=== PATIENT | female | born 1960 | race Caucasian/White ===

== ENCOUNTER 2017-11-22 13:09 | Emergency (ER) | payer OTHER ==
--- OUTSIDE RECORDS SUMMARY | 2017-11-22 13:12 | XMS REPORT ---
:1960 Author Organization [facility] Address [address] [place] [address] Dr. Lanza [address] [place] [id number] Care Team Providers Name Role Phone SHEMAR GRAY Unavailable Unavailable Problems This patient has no known problems. Allergies, Adverse Reactions, Alerts This patient has no known allergies or adverse reactions. Medications This patient has no known medications. Results Test Description Test Time Test Comments Text Results Atomic Results Result Comments PHOSPHORUS 2016-10-30 04:58:00 Test Item Value Reference Range Comments PHOSPHORUS (BEAKER) (test stuk=133) 3.8 mg/dL 2.3-4.7 FastingLIPID [id number] 04:58:00 Test Item Value Reference Range Comments TRIGLYCERIDES (BEAKER) (test gdga=413) 87 mg/dL CHOLESTEROL (BEAKER) (test qbsg=219) 197 mg/dL HDL CHOLESTEROL (BEAKER) (test sift=034) 50 mg/dL LDL CHOLESTEROL CALCULATED (BEAKER) (test 130 mg/dL icsj=188) Triglyceride Reference Range: Low Risk <150 Borderline 150- 199 High Risk 200-499 Very High Risk >=500Cholesterol Reference Range: Low Risk <200 Borderline 200-239 High Risk > 240HDL Cholesterol Reference Range: Low Risk >=60 High Risk <40LDL Cholesterol Reference Range: Optimal <100 Near Optimal 100-129 Borderline 130-159 High 160-189 Very High >=190 FastingT4, [id number] 11:19:00 Test Item Value Reference Range Comments FREE T4 (BEAKER) (test eybx=831) 0.83 ng/dL 0.70-1.48 CBC W/PLT COUNT & AUTO [id number] 10:53:00 Test Item Value Reference Range Comments WHITE BLOOD CELL COUNT (BEAKER) (test qlzz=205) 8.5 K/ L 4.0-10.0 RED BLOOD CELL COUNT (BEAKER) (test pwzf=957) 3.59 M/ L 4.00-5.00 HEMOGLOBIN (BEAKER) (test mkwz=544) 13.6 GM/DL 12.0-15.0 HEMATOCRIT (BEAKER) (test vcrr=143) 36.9 % 36.0-45.0 MEAN CORPUSCULAR VOLUME (BEAKER) (test oyoh=840) 103.0 fL 82.0-99.0 MEAN CORPUSCULAR HEMOGLOBIN (BEAKER) (test 38.0 pg 27.0-33.0 bkwn=467) MEAN CORPUSCULAR HEMOGLOBIN CONC (BEAKER) (test 36.9 GM/DL 32.0-36.0 ygnn=926) RED CELL DISTRIBUTION WIDTH (BEAKER) (test 12.2 % 10.3-14.2 vhoc=637) PLATELET COUNT (BEAKER) (test gtbj=549) 263 K/CU MM 150-430 MEAN PLATELET VOLUME (BEAKER) (test gvxa=445) 8.0 fL 6.5-10.5 NUCLEATED RED BLOOD CELLS (BEAKER) (test 0 /100 WBC 0-0 fjgk=402) NEUTROPHILS RELATIVE PERCENT (BEAKER) (test 65 % nrch=385) LYMPHOCYTES RELATIVE PERCENT (BEAKER) (test 26 % zcue=945) MONOCYTES RELATIVE PERCENT (BEAKER) (test 6 % ffkn=703) EOSINOPHILS RELATIVE PERCENT (BEAKER) (test 2 % over=462) BASOPHILS RELATIVE PERCENT (BEAKER) (test 1 % pmyz=415) NEUTROPHILS ABSOLUTE COUNT (BEAKER) (test 5.49 K/ L 1.80-8.00 lakv=291) LYMPHOCYTES ABSOLUTE COUNT (BEAKER) (test 2.24 K/ L 1.48-4.50 voys=068) MONOCYTES ABSOLUTE COUNT (BEAKER) (test 0.55 K/ L 0.00-1.30 zkiq=787) EOSINOPHILS ABSOLUTE COUNT (BEAKER) (test 0.13 K/ L 0.00-0.50 wdrm=421) BASOPHILS ABSOLUTE COUNT (BEAKER) (test 0.08 K/ L 0.00-0.20 lekm=416) 0.00HEMOGLOBIN [id number] 10:52:00 Test Item Value Reference Range Comments HEMOGLOBIN A1C (BEAKER) (test vlit=897) 5.1 % 4.3-6.1 TSH/FREE T4 IF [id number] 10:44:00 Test Item Value Reference Range Comments THYROID STIMULATING HORMONE (BEAKER) (test 8.53 uIU/mL 0.35-4.94 ghss=663) VITAMIN [id number] 10:37:00 Test Item Value Reference Range Comments VITAMIN B12 (BEAKER) (test ybfz=955) 992 pg/mL 213-816 URINALYSIS W/ [id number] 10:31:00 Test Item Value Reference Range Comments COLOR (BEAKER) (test vrso=349) Yellow CLARITY (BEAKER) (test smcg=123) Clear SPECIFIC GRAVITY UA (BEAKER) (test 1.012 1.001-1.035 yela=932) PH UA (BEAKER) (test vtwe=358) 7.5 5.0-8.0 PROTEIN UA (BEAKER) (test wgxs=831) Negative Negative GLUCOSE UA (BEAKER) (test ybix=493) Negative Negative KETONES UA (BEAKER) (test aiuo=266) 20 mg/dL Negative BILIRUBIN UA (BEAKER) (test bxkk=766) Negative Negative BLOOD UA (BEAKER) (test vbjb=800) Negative Negative NITRITE UA (BEAKER) (test jpxy=763) Negative Negative LEUKOCYTE ESTERASE UA (BEAKER) (test Negative Negative nhhg=352) UROBILINOGEN UA (BEAKER) (test mjhm=721) 0.2 mg/dL 0.2-1.0 RBC UA (BEAKER) (test qkjw=526) 5 /HPF WBC UA (BEAKER) (test sfyi=388) < /HPF MUCUS (BEAKER) (test hugf=1917) Rare SQUAMOUS EPITHELIAL (BEAKER) (test < /HPF hwwk=870) SOURCE(BEAKER) (test bemj=4920) Urine, Clean Catch [id number] 10:19:00 Test Item Value Reference Range Comments MAGNESIUM (BEAKER) (test jued=365) 2.0 mg/dL 1.6-2.6 HEPATIC FUNCTION [id number] 10:19:00 Test Item Value Reference Range Comments TOTAL PROTEIN (BEAKER) (test kupt=602) 7.0 gm/dL 6.0-8.3 ALBUMIN (BEAKER) (test nhvk=7545) 4.2 g/dL 3.5-5.0 BILIRUBIN TOTAL (BEAKER) (test hdgc=889) 0.9 mg/dL 0.2-1.2 BILIRUBIN DIRECT (BEAKER) (test hooc=726) 0.3 mg/dL 0.1-0.5 ALKALINE PHOSPHATASE (BEAKER) (test qume=194) 78 U/L 40-150 AST (SGOT) (BEAKER) (test lyvk=421) 18 U/L 5-34 ALT (SGPT) (BEAKER) (test zyra=855) 18 U/L 6-55 BASIC METABOLIC [id number] 10:14:00 Test Item Value Reference Range Comments SODIUM (BEAKER) (test 139 meq/L 136-145 gfii=475) POTASSIUM (BEAKER) (test 3.5 meq/L 3.5-5.1 dyzm=017) CHLORIDE (BEAKER) (test 108 meq/L 98-107 cecn=108) CO2 (BEAKER) (test 24 meq/L 22-29 ihzh=104) BLOOD UREA NITROGEN 10 mg/dL 7-21 (BEAKER) (test ttkd=363) CREATININE (BEAKER) (test 0.66 mg/dL 0.57-1.25 qjvl=254) GLUCOSE RANDOM (BEAKER) 88 mg/dL 70-105 (test dloc=213) CALCIUM (BEAKER) (test 8.6 mg/dL 8.4-10.2 upxs=572) EGFR (BEAKER) (test 93 mL/min/1.73 sq m ESTIMATED GFR IS NOT jcsp=3753) ACCURATE CREATININE CLEARANCE IN PREDICTING GLOMERULAR FILTRATION RATE. ESTIMATED GFR IS NOT APPLICABLE FOR DIALYSIS PATIENTS.
--- OUTSIDE RECORDS SUMMARY | 2017-11-22 13:12 | XMS REPORT | Clinical Summary ---
:1960 Author Organization [facility] Address [address] [place] [address] Phone Care Team Providers Name Role Phone Unavailable Primary Care Provider Unavailable Allergies Active Allergy Reactions Severity Noted Date Comments Psyllium Hives 10/29/2016 Current Medications Prescription Sig. Disp. Refills Start Date End Date Status gabapentin Take 600 mg by Active (NEURONTIN) 600 MG mouth 3 (three) tablet times daily. losartan (COZAAR) 25 Take 25 mg by Active MG tablet mouth daily. DULoxetine (CYMBALTA) Take 20 mg by Active 20 MG capsule mouth daily. meloxicam (MOBIC) 15 Take 15 mg by Active MG tabletIndications: mouth daily. Rheumatoid Arthritis levothyroxine Take 1.5 30 tablet 0 10/30/2016 Active (SYNTHROID, tablets (75 mcg LEVOTHROID) 50 MCG total) by mouth tablet Every morning on an empty stomach. aspirin 81 MG EC Take 1 tablet 360 tablet 0 10/30/2016 10/30/2017 tablet (81 mg total) by mouth daily. atorvastatin Take 1 tablet 30 tablet 0 10/30/2016 11/29/2016 (LIPITOR) 80 MG (80 mg total) tablet by mouth nightly for 30 days. Active Problems Problem Noted Date Altered mental status, unspecified 10/29/2016 TIA (transient ischemic attack) 10/29/2016 Acute encephalopathy, 2/2 TIA 10/29/2016 Acquired hypothyroidism 10/29/2016 Neuropathic pain 10/29/2016 Family History Medical History Relation Name Comments Diabetes Mother Heart disease Mother Stroke Mother Relation Name Status Comments Mother Social History Tobacco Use Types Packs/Day Years Used Date Former Smoker Comments: stopped 2009 Alcohol Use Drinks/Week oz/Week Comments Yes very occassional Sex Assigned at Date Recorded Not on file Last Filed Vital Signs Not on file Plan of Treatment Not on file Results Not on fileafter 11/21/2016
--- NOTE | 2017-11-22 14:37 | RAD REPORT ---
EXAM DESCRIPTION: CT - Head C Spine Mpr Wo Con - 11/22/2017 2:11 pm CLINICAL HISTORY: Head and neck injury status post hitting head and neck and scanner top. Head and n bhavesh pain COMPARISON: April 2017 TECHNIQUE: Computed axial tomography of the head and cervical spine was obtained. Sagittal and coronal reconstruction was performed. All CT scans are performed using dose optimization technique as appropriate and may include automated exposure control or mA/KV adjustment according to patient size. FINDINGS: An intracranial bleed is not seen. The ventricles are normal in caliber. An extra-axial fl uid collection is not noted.Fluid within the visualized sinuses and mastoids is not seen A cervical fracture is not visualized. No dislocation is noted. Spondylosis involves the cervical spi ne resulting in mild foraminal stenosis. Slight posterior subluxation of C4 on C5-C5 on C6 is present. No adjacent soft tissue swelling is see n. This probably is chronic. IMPRESSION: No acute intracranial abnormality is seen. A cervical fracture is not visualized. If the patient continues to have symptoms to suggest intracra nial /spinal cord/ligamentous pathology then MRI would be recommended
[2017-11-22 16:10] LABS: Urine Blood TRACE (NEG); Urine Glucose NEGATIVE (NEG); Urine Protein NEGATIVE (NEG); Urine Specific Gravity 1.015 (1.005-1.030)
--- NOTE | 2017-11-22 16:49 | ER ---
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 Negative LOC. Care prior to arrival: None. 13:34 Acuity: LEVI 4 hb 13:34 Method Of Arrival: Ambulatory hb 14:00 Transition of care: patient was not received from another setting of care. Onset of kr2 symptoms was November 22, 2017. Risk Assessment: Do you want to hurt yourself or someone else? Patient reports no desire to harm self or others. Initial Sepsis Screen: Does the patient meet any 2 criteria? No. Patient's initial sepsis screen is negative. Does the patient have a suspected source of infection? No. Patient's initial sepsis screen is negative. Trauma Activation: Not Applicable Physician: ED Physician; Name: ; Notified At: ; Arrived At: Physician: General Surgeon; Name: ; Notified At: ; Arrived At: Physician: Radiology; Name: ; Notified At: ; Arrived At: Physician: Respiratory; Name: ; Notified At: ; Arrived At: Physician: Lab; Name: ; Notified At: ; Arrived At: Historical: - Allergies: 13:37 Mucinex; hb - Home Meds: 13:37 Cymbalta Oral [Active]; BP med [Active]; steroid inhaler [Active]; Neurontin Oral hb [Active]; - Immunization history:: Adult Immunizations up to date. - Social history:: Smoking status: Patient/guardian denies using tobacco. - Ebola Screening: : No symptoms or risks identified at this time. - Family history:: not pertinent. - Hospitalizations: : No recent hospitalization is reported. Screenin:00 Abuse screen: Denies threats or abuse. Denies injuries from another. Nutritional kr2 screening: No deficits noted. Tuberculosis screening: No symptoms or risk factors identified. Fall Risk None identified. Assessment: 14:00 General: Appears in no apparent distress. comfortable, well groomed, well developed, kr2 well nourished, Behavior is calm, cooperative, appropriate for age. Pain: Complains of pain in head and neck Pain currently is 6 out of 10 on a pain scale. Quality of pain is described as aching, Is continuous, Alleviated by nothing. Neuro: Level of Consciousness is awake, alert, obeys commands, Oriented to person, place, time, situation. Cardiovascular: Capillary refill < 3 seconds in bilateral fingers Patient's skin is warm and dry. Respiratory: Airway is patent Respiratory effort is even, unlabored, Respiratory pattern is regular, symmetrical. GI: Abdomen is flat, non-distended, Patient currently denies nausea, vomiting. Derm: Skin is intact, is healthy with good turgor, Skin is pink, warm \T\ dry. Musculoskeletal: Circulation, motion, and sensation intact. 15:00 Reassessment: Patient appears in no apparent distress at this time. Patient and/or kr2 family updated on plan of care and expected duration. Pain level reassessed. Patient is alert, oriented x 3, equal unlabored respirations, skin warm/dry/pink. 16:00 Reassessment: No changes from previously documented assessment. kr2 17:03 Reassessment: Patient appears in no apparent distress at this time. Patient and/or kr2 family updated on plan of care and expected duration. Pain level reassessed. Patient is alert, oriented x 3, equal unlabored respirations, skin warm/dry/pink. Patient states feeling better. Vital Signs: 13:36 BP 129 / 72; Pulse 100; Resp 18; Temp 99; Pulse Ox 100% on R/A; Pain 5/10; hb 13:43 BP 145 / 110 LA Sitting (auto/reg); Pulse 114; Temp 99.1(O); Pulse Ox 100% on R/A; Pain jp3 5/10; 16:17 BP 119 / 97 LA Sitting (auto/reg); Pulse 97; Pulse Ox 100% on R/A; Pain 5/10; jp3 Revere Coma Score: 16:44 Eye Response: spontaneous(4). Verbal Response: oriented(5). Motor Response: obeys rn commands(6). Total: 15. ED Course: 13:12 Patient arrived in ED. rg4 13:12 Rajan Cruz MD is Private Physician. rg4 13:36 Triage completed. hb 13:37 Arm band placed on right wrist. hb 13:42 Anjum Coto MD is Attending Physician. rn 13:43 Bed in low position. Call light in reach. Side rails up X 1. jp3 13:46 Pillow given. jp3 13:46 Pulse ox on. NIBP on. jp3 14:06 Patient moved to [place] via wheelchair. sw 14:20 Urine collected: clean catch specimen, clear, bear colored. jp3 14:28 Olena Louie, RN is Primary Nurse. kr2 14:37 Urine Dipstick--Ancillary (enter results) Sent. jp3 17:02 No provider procedures requiring assistance completed. Patient did not have IV access kr2 during this emergency room visit. Administered Medications: No medications were administered Outcome: 16:49 Discharge ordered by . rn 17:02 Discharged to home ambulatory, with family. kr2 17:02 Condition: good 17:02 Discharge instructions given to patient, family, Instructed on discharge instructions, follow up and referral plans. Demonstrated understanding of instructions, follow-up care. 17:03 Patient left the ED. kr2 Signatures: Anjum Coto MD MD rn Warren, Shannon Yeni Hsu RN RN hb Garcia, Rubi rg4 Olena Louie RN RN kr2 José Miguel Dorsey jp3
--- NOTE | 2017-11-22 16:49 | EDPHYS ---
Physician Documentation [facility] Name: Jeri Palacio Age: 57 yrs Sex: Female : 1960 Arrival Date: 11/22/2017 Time: 13:12 Bed 26 Private MD: Rajan Cruz B ED Physician Anjum Coto HPI: 11/22 16:44 This 57 yrs old Female presents to ER via Ambulatory with complaints of rn Headache. 16:44 The patient complains of pain to the top of head and forehead. The patient describes rn the headache as aching. Onset: The symptoms/episode began/occurred just prior to arrival. Associated signs and symptoms: Pertinent negatives: altered mental status, fever, neck stiffness, rash, vision changes, vision loss, vomiting, weakness. Severity of symptoms: At its worst the pain was mild, in the emergency department the pain has improved. The patient has not experienced similar symptoms in the past. Reports stood up, hit head on bottom of granite countertop, no LOC, no focal neurological problem, + headache, ambulatory. . Historical: - Allergies: 13:37 Mucinex; hb - Home Meds: 13:37 Cymbalta Oral [Active]; BP med [Active]; steroid inhaler [Active]; Neurontin Oral hb [Active]; - Immunization history:: Adult Immunizations up to date. - Social history:: Smoking status: Patient/guardian denies using tobacco. - Ebola Screening: : No symptoms or risks identified at this time. - Family history:: not pertinent. - Hospitalizations: : No recent hospitalization is reported. ROS: 16:44 Constitutional: Negative for fever, chills, and weight loss, Eyes: Negative for injury, rn pain, redness, and discharge, Neck: Negative for injury, pain, and swelling, Cardiovascular: Negative for chest pain, palpitations, and edema, Respiratory: Negative for shortness of breath, cough, wheezing, and pleuritic chest pain, Abdomen/GI: Negative for abdominal pain, nausea, vomiting, diarrhea, and constipation, MS/Extremity: Negative for injury and deformity, Skin: Negative for injury, rash, and discoloration, Neuro: Negative for weakness, numbness, tingling, and seizure. Exam: 16:44 Constitutional: This is a well developed, well nourished patient who is awake, alert, rn and in no acute distress. Head/Face: Normocephalic, atraumatic. Eyes: Pupils equal round and reactive to light, extra-ocular motions intact. Lids and lashes normal. Conjunctiva and sclera are non-icteric and not injected. Cornea within normal limits. Periorbital areas with no swelling, redness, or edema. Neck: Trachea midline, no thyromegaly or masses palpated, and no cervical lymphadenopathy. Supple, full range of motion without nuchal rigidity, or vertebral point tenderness. No Meningismus. Back: No spinal tenderness. No costovertebral tenderness. Full range of motion. Skin: Warm, dry with normal turgor. Normal color with no rashes, no lesions, and no evidence of cellulitis. MS/ Extremity: Pulses equal, no cyanosis. Neurovascular intact. Full, normal range of motion. Equal circumference. Neuro: Awake and alert, GCS 15, oriented to person, place, time, and situation. Cranial nerves II-XII grossly intact. Motor strength 5/5 in all extremities. Sensory grossly intact. Cerebellar exam normal. Normal gait. Vital Signs: 13:36 BP 129 / 72; Pulse 100; Resp 18; Temp 99; Pulse Ox 100% on R/A; Pain 5/10; hb 13:43 BP 145 / 110 LA Sitting (auto/reg); Pulse 114; Temp 99.1(O); Pulse Ox 100% on R/A; Pain jp3 5/10; 16:17 BP 119 / 97 LA Sitting (auto/reg); Pulse 97; Pulse Ox 100% on R/A; Pain 5/10; jp3 Cotulla Coma Score: 16:44 Eye Response: spontaneous(4). Verbal Response: oriented(5). Motor Response: obeys rn commands(6). Total: 15. MDM: 13:43 Patient medically screened. rn 16:44 Differential diagnosis: tension headache, vasomotor headache, Headache, concussion. rn Data reviewed: vital signs, nurses notes, radiologic studies, CT scan, and as a result, I will discharge patient. Counseling: I had a detailed discussion with the patient and/or guardian regarding: the historical points, exam findings, and any diagnostic results supporting the discharge/admit diagnosis, radiology results, the need for outpatient follow up, to return to the emergency department if symptoms worsen or persist or if there are any questions or concerns that arise at home. Special discussion: Based on the patient's history, exam and DX evaluation, there is no indication for emergent intervention or inpatient [place]. It is understood by the patient/guardian that if the SXs persist or worsen they need to return immediately for re-evaluation. I discussed with the patient/guardian in detail that at this point there is no indication for admission to the hospital. It is understood, however, that if the symptoms persist or worsen the patient needs to return immediately for re-evaluation. 11/22 14:34 Order name: Urine Dipstick--Ancillary (enter results) eb 11/22 16:11 Order name: Urine Dipstick-Ancillary; Complete Time: 16:44 EDMS 11/22 13:57 Order name: CT Head C Spine rn 11/22 14:38 Order name: CT; Complete Time: 16:44 EDMS Administered Medications: No medications were administered Disposition: 11/22/17 16:49 Discharged to Home. Impression: Superficial injury of head. - Condition is Stable. - Discharge Instructions: Head Injury, Adult. - Medication Reconciliation Form, Thank You Letter, Antibiotic Education, Prescription Opioid Use, Family Work Release form. - Follow up: Private Physician; When: As needed; Reason: Recheck today's complaints, Re-evaluation by your physician. - Problem is new. - Symptoms have improved. Signatures: Dispatcher [employer] EDMS Anjum Coto MD MD rn Baxter, Heather, RN RN hb Reaves, Karey, RN RN kr2 Corrections: (The following items were deleted from the chart) 17:03 16:49 11/22/2017 16:49 Discharged to Home. Impression: Superficial injury of head. kr2 Condition is Stable. Forms are Medication Reconciliation Form, Thank You Letter, Antibiotic Education, Prescription Opioid Use. Follow up: Private Physician; When: As needed; Reason: Recheck today's complaints, Re-evaluation by your physician. Problem is new. Symptoms have improved. rn
== END 2017-11-22 17:03 | disposition home or self-care (01) ==
LOC: ER 13:09
DX: S00.90XA Unspecified superficial injury of unspecified part of head, initial encounter (principal); W22.09XA Striking against other stationary object, initial encounter; Y93.89 Activity, other specified; Y92.89 Other specified places as the place of occurrence of the external cause; Z88.8 Allergy status to other drugs, medicaments and biological substances
CPT/HCPCS: 70450; 72125; 81003; 99284

== ENCOUNTER 2020-01-06 12:59 | Emergency (ER) | payer OTHER ==
--- OUTSIDE RECORDS SUMMARY | 2020-01-06 13:01 | XMS REPORT | Clinical Summary ---
:1960 Author Organization [facility] Address [address] [place] [address] Care Team Providers Name Role Phone Unavailable Primary Care Provider Unavailable Allergies Active Allergy Reactions Severity Noted Date Comments Psyllium Hives 10/29/2016 Medications Medication Sig Dispensed Refills Start Date End Date Status gabapentin (NEURONTIN) Take 600 mg by 0 Active 600 MG tablet mouth 3 (three) times daily. losartan (COZAAR) 25 MG Take 25 mg by 0 Active tablet mouth daily. DULoxetine (CYMBALTA) Take 20 mg by 0 Active 20 MG capsule mouth daily. meloxicam (MOBIC) 15 MG Take 15 mg by 0 Active tabletIndications: mouth daily. rheumatoid arthritis levothyroxine Take 1.5 tablets 30 tablet 0 10/30/2016 Active (SYNTHROID, LEVOTHROID) (75 mcg total) by 50 MCG tablet mouth Every morning on an empty stomach. Active Problems Problem Noted Date Altered mental [...] Assigned at Date Recorded Not on file Job Start Date Occupation Industry Not on file Not on file Not on file Travel History Travel Start Travel End No recent travel history available. Last Filed Vital Signs Not on file Plan of Treatment Not on file Results Not on fileafter 01/05/2019 Insurance Payer Benefit Plan / Group Subscriber ID Type Phone A ddress CARE IMPROVEMENT MEDICARE MGD CARE IMPROVEMENT PLUS xxxxxxxxx CARE
--- OUTSIDE RECORDS SUMMARY | 2020-01-06 13:02 | XMS REPORT | Summary of Care ---
:1960 Author Organization [facility] Address [address] [place] [address] Care Team Providers Name Role Phone Naomi Cruz Primary Care Provider Reason for Referral Radiology Services (Routine) Status Reason Specialty Diagnoses / Referred By Referred To Procedures Contact Contact New Request Diagnostic Diagnoses Senile osteoporosis Shahida Bill, Radiology Procedures DEXA AXIAL (HIP AND SPINE) [address] [place] [address] Reason for Visit Reason Comments Follow-up Thyroid Problem Encounter Details Date Type Department Care Team Description 11/06/2019 Office Visit [facility] Shahida Bill MD Postablative hypothyroidism (Primary Dx) ; Endocrinology- [address] [place] [address] Senile o steoporosis; [facility] Other hemochromatosis; [address] [facility] [place] [id number] [place] [phone] Allergies Active Allergy Reactions Severity Noted Date Comments Morphine Hallucinations 11/13/2014 Guaifenesin Hives, Itching 12/11/2013 documented as of this encounter (statuses as of 11/06/2019) Medications Medication Sig Dispensed Refills Start Date End Date Status meloxicam (MOBIC) 7.5 mg 0 11/20/2013 Active tablet gabapentin (NEURONTIN) 5 07/10/2015 Active 600 mg tablet methimazole (TAPAZOLE) TAKE 1 TABLET 180 tablet 0 08/12/2015 Active 10 mg tablet BY MOUTH TWICE DAILY losartan 25 mg tablet 0 08/04/2016 Active tiZANidine 4 mg tablet TK 1/2 TO 1 T 4 06/21/2016 Active PO QD methylphenidate 10 mg TK 1 T PO BID 0 06/24/2016 Active tablet DULoxetine 20 mg capsule Take 40 mg by 0 Active mouth. levothyroxine Take 1 tablet 90 tablet 3 09/22/2018 A ctive (SYNTHROID) 75 mcg by mouth every tabletIndications: morning. Postablative hypothyroidism Additional information Patient taking differently: 112.5 mcg Oral QAM, Reported on 11/06/2019 3:32 PM propranolol 20 mg Take 1 180 tablet 1 11/06/2019 Active tabletIndications: tablet by Tachycardia mouth 2 (two) times daily. propranolol 40 mg Take 1 270 tablet 0 07/10/2018 (Dose tabletIndications: tablet by 2020 a djustment) Tachycardia mouth 3 (three) times daily. documented as of this encounter (statuses as of 11/06/2019) Active Problems Problem Noted Date Postablative hypothyroidism 09/13/2017 Osteoporosis 04/09/2015 Tachycardia 03/13/2014 HTN (hypertension) 03/13/2014 Hyperthyroidism 12/11/2013 documented as of this encounter (statuses as of 11/06/2019) Resolved Problems Problem Noted Date Resolved Date Graves disease 12/11/2013 04/09/2015 documented as of this encounter (statuses as of 11/06/2019) Social History Tobacco Use Types Packs/Day Years Used Date Never Smoker Alcohol Use Drinks/Week oz/Week Comments No Sex Assigned at Date Recorded Not on file Job Start Date Occupation Industry Not on file Not on file Not on file Travel History Travel Start Travel End No recent travel history available. COVID-19 Exposure Response Date Recorded In the last month, have you been in contact with No / Unsure 11/06/2019 2:53 PM CDT someone who was confirmed or suspected to have Coronavirus / COVID-19? documented as of this encounter Last Filed Vital Signs Vital Sign Reading Time Taken Comments Blood Pressure 144/80 11/06/2019 3:06 PM CDT Pulse 90 11/06/2019 3:06 PM CDT Temperature - - Respiratory Rate 16 11/06/2019 3:06 PM CDT Oxygen Saturation - - Inhaled Oxygen Concentration - - Weight 63 kg (138 lb 12.8 oz) 11/06/2019 3:06 PM CDT Height 160 cm (5' 3") 11/06/2019 3:06 PM CDT Body Mass Index 24.59 11/06/2019 3:06 PM CDT documented in this encounter Patient Instructions Patient InstructionsShahida Bill MD - 11/06/2019 3:00 PM CDTContinue levothyroxine 1.5 tablet daily for now , will adjust pending lab review documented in this encounter Progress Notes Shahida Bill MD - 11/06/2019 3:00 PM CDT chief complaint: Post-abletive hypothyroidism, osteoporosis- follow up HPI Patient is a 59 year old /White female here for osteoporosis and post- ablative hypothyroidism Patient with Graves disease s/p Radioiodine therapy with 25 mCi of I-131 in 07/2015 Patient was started on LT4 at 75 mcg daily in 12/2015 LUCÍA was in 06/2018. She has been following PCP since. Brought labs in 08/2019. With TSH elevated at5.4, PCP instructed patient to increase levothyroxine 75mcg daily to 1.5 tablets daily Report fatigue or weight gain improved since increase in levothyroxine dose Requesting refills on Propranolol for palpitation ( started during hyperthyroidism) Osteoporosis: Improvement in BMD in 2017 since one dose of Reclast in 2015. however since then patient believes she developed tooth decays even though has not seen any dentist. Early menopause at age 39. Never took HRT. H/o left metatarsal fracture and wrist fracture with minor trauma. H/o left hip fracture with minor fall. Patient on chronic steroid shots. Normal Vitamin D 10/2014: DEXA shows osteoporosis at spine at T score -4.8 and left femoral neck -3 09/2016: DEXA showed improvement in lumbar spine T score at -3.9 ( from -4.8) and also radius -3.1 Received first dose of reclast in 07/2015, Second infusion was ordered in 01/2016 that patient did not schedule due to traveling. 01/2017: Normal PTh and Vitamin D. HISTORY Past Medical History: Diagnosis Date Arthritis Graves disease Past Surgical History: Procedure Laterality Date HIP ORIF Family History Problem Relation Age of Onset Thyroid Mother Social History Socioeconomic History Marital status: Spouse name: Not on file Number of children: Not on file Years of education: Not on file Highest education level: Not on file Occupational History Not on file Social Needs Financial resource strain: Not on file Food insecurity: Worry: Not on file Inability: Not on file Transportation needs: Medical: Not on file Non-medical: Not on file Tobacco Use Smoking status: Never Smoker Substance and Sexual Activity Alcohol use: No Drug use: Not on file Sexual activity: Not on file Lifestyle Physical activity: Days per week: Not on file Minutes per session: Not on file Stress: Not on file Relationships Social connections: Talks on phone: Not on file Gets together: Not on file Attends quaker service: Not on file Active member of club or organization: Not on file Attends meetings of clubs or organizations: Not on file Relationship status: Not on file Intimate partner violence: Fear of current or ex partner: Not on file Emotionally abused: Not on file Physically abused: Not on file Forced sexual activity: Not on file Other Topics Concern Not on file Social History Narrative Not on file REVIEW OF SYSTEMS Constitutional:intentional weight loss, + fatigue and hair loss improving Eyes: denies blurry vision, denies diplopia and denies pain. Mouth: + Dental decays Neck: denies pain, denies swollen glands Cardiovascular: denies chest pain , denies irregular pulse and denies palpitations. Respiratory: denies dyspnea on exertion and denies shortness of breath. Gastrointestinal: denies abdominal pain, denies constipation and denies diarrhea. Genitourinary: denies burning and denies dysuria. Musculoskeletal: denies back pain, denies muscle pain and denies weakness. Skin: denies dry skin and denies hair changes. Neuro: +headache and denies tremor. Psych: negative. Endocrine: denies goiter, denies hair loss, denies intolerance to cold, denies intolerance to heat, denies polydipsia, denies polyphagia and denies polyuria. PHYSICAL EXAM BP (!) 144/80 (BP Location: Left arm, Patient Position: Sitting, BP CUFF SIZE: Adult Large) | Pulse90 | Resp 16 | Ht 5' 3" (1.6 m) | Wt 138 lb 12.8 oz (63 kg) | LMP 08/15/2015 | BMI 24.59 kg/m General: alert, oriented times three, no apparent distress, appearing age appropriate. Eyes: anicteric sclera, pupils are equally round and reactive to light and extraocular movements normal. Neck: neck supple, no adenopathy, no goiter Thyroid: normal size and soft in consistency to palpation, no palpable thyroid nodule, no bruits. Lungs: good diaphragmatic excursion, lungs clear to auscultation bilaterally. Heart: regular rate and rhythm, no murmurs, gallops or rubs. Abdomen: abdomen soft, non-tender, normal active bowel sounds Extremities/Musculoskeletal: no cyanosis, no edema Neuro: unremarkable without focal findings, no tremor . Patient's Medications START taking these medications PROPRANOLOL 20 MG TABLET Take 1 tablet by mouth 2 (two) times daily. CONTINUE taking these medications which have NOT CHANGED DULOXETINE 20 MG CAPSULE Take 40 mg by mouth. GABAPENTIN (NEURONTIN) 600 MG TABLET LEVOTHYROXINE (SYNTHROID) 75 MCG TABLET Take 1 tablet by mouth every morning. LOSARTAN 25 MG TABLET MELOXICAM (MOBIC) 7.5 MG TABLET METHIMAZOLE (TAPAZOLE) 10 MG TABLET TAKE 1 TABLET BY MOUTH TWICE DAILY METHYLPHENIDATE 10 MG TABLET TK 1 T PO BID TIZANIDINE 4 MG TABLET TK 1/2 TO 1 T PO QD START taking Modified Medications as Prescribed No medications on file STOP taking these medications PROPRANOLOL 40 MG TABLET Take 1 tablet by mouth 3 (three) times daily. 2017 DEXA IMPRESSION: 1. Lumbar Spine L1-L4: The calculated total T-score is -3.9, and the Z-score is -2.8, which is osteoporosis. The total bone mineral density is calculated at 0.717 g/cm2. This puts the patient at high risk for compression fractures. 2. Right Hip: The calculated T-score at the femoral neck is -2.7, and the Z-score is -1.5, osteoporosis. The calculated total T-score is -2.3, and the Z-score is -1.5, which is osteopenia. The total bone mineral density is calculated at 0.715 g/cm2. There is high risk for femoral neck fractures. 3.Right Radius: The calculated T-score at the distal 33% of the right radius is -3.1, and the Z-score -2.5, which is osteoporosis. The bone mineral density is calculated at 0.608 g/cm2. Specimen Collected: 10/04/16 8:11 AM Last Resulted: 10/04/16 8:19 AM Component Latest Ref Rng & Units 01/25/2017 01/25/2017 1:01 PM 1:01 PM VIT D 25OH 25 - 80 ng/mL 46 25-Hydroxy D3 ng/mL 46.3 25-Hydroxy D2 ng/mL <2.5 CALCIUM 8.6 - 10.6 mg/dL 9.5 PTH-INTACT 12.0 - 88.0 pg/mL 29.4 PTH-CA INT ASSESSMENT Postablative hypothyroidism Comment: Clinically euthyroid. Recheck TFT' Plan: - THYROID STIMULATING HORMONE; Future - T4 FREE; Future Refill or adjust after labs; levothyroxine (SYNTHROID) 75 mcg tablet 2. Senile osteoporosis Osteoporosis of lumbar spine and right radius Osteoporosis of femur without pathological fracture Improvement in BMD at spine. Hip not known ( as different sites were scanned each time) Secondary causes ruled out Received one Reclast dose in 07/2015, On hold due to recent onset dental discoloration. Plan: - VITAMIN D, 25-OH; Future - DEXA AXIAL (HIP AND SPINE); Future Patient states she will reconsider osteoporosis meds if BMD worsens 3. Other hemochromatosis Seen by hematology 4. Tachycardia On PRN dose of propranolol- she takes when HR >92. Advised to reduce dose plan - propranolol 20 mg tablet; Take 1 tablet by mouth 2 (two) times daily. Dispense: 180 tablet; Refill: 1 documented in this encounter Plan of Treatment Date Type Specialty Care Team Description 05/13/2020 Office Visit Endocrinology Diabetes & Ricardo Bill MD Metabolism [address] [place] [address] [phone] Name Type Priority Associated Diagnoses Order S chedule THYROID STIMULATING LAB Routine Postablative Expected : HORMONE hypothyroidism 11/06/2019, Expires: 2020 T4 FREE LAB Routine Postablative Expected: hypothyroidism 11/06/2019, Expires: 2020 VITAMIN D, 25-OH LAB Routine Senile osteoporosis Expe cted: 11/06/2019, Expires: 2020 DEXA AXIAL (HIP AND IMAGING Routine Senile osteoporosis E xpected: SPINE) 11/06/2019, Expires: 2020 Health Maintenance Due Date Last Done Comments HEPATITIS C (HCV) SCREEN 1960 DTaP,Tdap,and Td Vaccines (1 - 01/22/1971 Tdap) Depression Screening 1972 PAP SMEAR 01/22/1981 Breast Cancer Screening 2000 (MAMMOGRAM) COLONOSCOPY 01/22/2010 Zoster Recombinant Vaccine 01/22/2010 (SHINGRIX) (1 of 2) INFLUENZA VACCINE (#1) 2019 PNEUMOCOCCAL 0-64 YEARS COMBINED Aged Out No longer eligible based on SERIES patient's age to complete this topic documented as of this encounter Results Not on filedocumented in this encounter Visit Diagnoses Diagnosis Postablative hypothyroidism - Primary Other postablative hypothyroidism Senile osteoporosis Other hemochromatosis Tachycardia Tachycardia, unspecified documented in this encounter Insurance Payer Benefit Plan / Subscriber ID Effective Phone Address T ype Group Dates [facility] MEDICARE [id number] 2018-[employer] dicare Adv HEALTHCARE COMPLETE nt PPO MEDICARE CHOICE ADVANTAGE documented as of this encounter
--- OUTSIDE RECORDS SUMMARY | 2020-01-06 13:02 | XMS REPORT | Summary of Care ---
:1960 Author Organization [facility] - Health Address [address] [place] [address] Care Team Providers Name Role Phone Naomi Cruz Primary Care Provider Encounter Details Date Type Department Care Team Description 11/06/2019 Orders Only [facility] Doctor Unassigned, No [address] [facility] [address] [address] [place] [address] Allergies Active Allergy Reactions Severity Noted Date [...] Take 40 mg by 0 Active mouth. propranolol 40 mg Take 1 tablet 270 tablet 0 07/10/2018 Active tabletIndications: by mouth 3 Tachycardia (three) times daily. levothyroxine Take 1 tablet 90 tablet 3 09/22/2018 A ctive (SYNTHROID) 75 mcg by mouth every tabletIndications: morning. Postablative hypothyroidism documented as of this encounter (statuses as [...] of this encounter Last Filed Vital Signs Not on filedocumented in this encounter Plan of Treatment Date Type Specialty Care Team Description 11/06/2019 Office Visit Endocrinology Diabetes & Ricardo Bill MD [address] [address] [phone] Health Maintenance Due Date Last Done Comments [...] this topic documented as of this encounter Procedures Procedure Name Priority Date/Time Associated Diagnosis Comme nts ASSIGNMENT OF BENEFITS Routine 11/06/2019 2:55 PM CDT documented in this encounter Results Not on filedocumented in this encounter Insurance Payer Benefit Plan / Subscriber ID Effective Phone Address T ype Group Dates [facility] [id number] 2018-Prese Medic are Adv HEALTHCARE - HEALTHCARE nt HMO MANAGED MEDICARE ADV MEDICARE HMO documented as of this encounter
--- OUTSIDE RECORDS SUMMARY | 2020-01-06 13:02 | XMS REPORT | Summary of Care ---
:1960 Author Organization [facility] Address [address] [place] [address] Care Team Providers Name Role Phone Naomi Cruz Primary Care Provider Reason for Visit Reason Comments Refill Request Encounter Details Date Type Department Care Team Description 11/10/2019 Refill [facility] Endocrinology- Shahida Bill MD Refill Request [address] [address] [address] [place] [address] [phone] Allergies Active Allergy Reactions Severity Noted Date Comments Morphine Hallucinations 11/13/2014 Guaifenesin Hives, Itching 12/11/2013 documented as of this encounter (statuses as of 11/12/2019) Medications Medication Sig Dispensed Refills Start Date End Date Status meloxicam (MOBIC) 0 11/20/2013 A ctive 7.5 mg tablet gabapentin 5 07/10/2015 Active (NEURONTIN) 600 mg tablet methimazole TAKE 1 180 tablet 0 08/12/2015 Active (TAPAZOLE) 10 mg TABLET BY tablet MOUTH TWICE DAILY losartan 25 mg 0 08/04/2016 Acti ve tablet tiZANidine 4 mg TK 1/2 TO 1 4 06/21/2016 A ctive tablet T PO QD methylphenidate 10 TK 1 T PO 0 06/24/2016 Active mg tablet BID DULoxetine 20 mg Take 40 mg 0 Ac tive capsule by mouth. propranolol 20 mg Take 1 180 tablet 1 11/06/2019 Active tabletIndications: tablet by Tachycardia mouth 2 (two) times daily. levothyroxine Take 1 90 tablet 3 11/12/2019 Activ e (SYNTHROID) 75 mcg tablet by tabletIndications: mouth every Postablative morning. hypothyroidism levothyroxine Take 1 90 tablet 3 09/22/2018 Disco ntinued (SYNTHROID) 75 mcg tablet by 0 ( Reorder) tabletIndications: mouth every Postablative morning. hypothyroidism documented as of this encounter (statuses as of 11/12/2019) Active Problems Problem Noted Date Postablative hypothyroidism 09/13/2017 Osteoporosis 04/09/2015 Tachycardia 03/13/2014 HTN (hypertension) 03/13/2014 Hyperthyroidism 12/11/2013 documented as of this encounter (statuses as of 11/12/2019) Resolved Problems Problem Noted Date Resolved Date Graves disease 12/11/2013 04/09/2015 documented as of this encounter (statuses as of 11/12/2019) Social History Tobacco Use Types Packs/Day Years [...] Treatment Date Type Specialty Care Team Description 11/15/2019 Appointment Radiology Shahida Bill MD [address] [place], [place] [id number] 05/13/2020 Office Visit Endocrinology Diabetes & Ricardo Bill MD Metabolism [address] [place], [place] [address]39[address] Health Maintenance Due Date Last Done Comments [...] this encounter Visit Diagnoses Diagnosis Postablative hypothyroidism Other postablative hypothyroidism documented in this encounter Insurance Payer Benefit Plan / Subscriber ID Effective Phone Address T ype Group Dates [employer] MEDICARE [id number] 2018-[employer]ance [employer] [facility] HEALTHCARE COMPLETE nt PPO MEDICARE CHOICE ADVANTAGE documented as of this encounter
--- OUTSIDE RECORDS SUMMARY | 2020-01-06 13:02 | XMS REPORT | Summary of Care ---
:1960 Author Organization [facility] Address [address] [place] [address] Care Team Providers Name Role Phone Naomi Cruz Primary Care Provider Reason for Referral Radiology Services (Routine) Status Reason Specialty Diagnoses / Referred By Referred To Procedures Contact Contact New Request Diagnostic Diagnoses Senile osteoporosis Shahida Bill, Radiology Procedures DEXA AXIAL (HIP AND SPINE) [address] [place] [address] Reason for Visit Reason Comments Follow-up Thyroid Problem Encounter Details Date Type Department Care Team Description 11/06/2019 Office Visit [facility] Shahida Bill MD Postablative hypothyroidism (Primary Dx) ; Endocrinology- [address] [place] [address] Senile o steoporosis; [facility] Other hemochromatosis; [address] [facility], [id number] [place] [phone] Allergies Active Allergy Reactions Severity Noted Date [...] file Gets together: Not on file Attends latter day service: Not on file Active member of [...] Diabetes & Ricardo Bill MD Metabolism [address] [place] [address] [phone] Name Type Priority Associated Diagnoses Order S [...] Effective Phone Address T ype Group Dates [facility] MEDICARE [id number] 2018-[employer] dicare Adv HEALTHCARE COMPLETE nt PPO MEDICARE CHOICE ADVANTAGE documented as of this encounter
--- OUTSIDE RECORDS SUMMARY | 2020-01-06 13:02 | XMS REPORT | Summary of Care ---
:1960 Author Organization [facility] Address [address] [place] [address] Care Team Providers Name Role Phone Naomi Cruz Primary Care Provider Reason for Visit Reason Comments Rx Concern/Question Results Encounter Details Date Type Department Care Team Description 11/13/2019 Telephone [facility] Shahida Bill MD Rx Concern/Question; Endocrinology- [address] [facility] Results [address], [id number] [place] [address] [phone] [address] [phone] Allergies Active Allergy Reactions Severity Noted Date Comments Morphine Hallucinations 11/13/2014 Guaifenesin Hives, Itching 12/11/2013 documented as of this encounter (statuses as of 11/13/2019) Medications Medication Sig Dispensed Refills Start End Date Status Date meloxicam (MOBIC) 0 Ac tive 7.5 mg tablet 4 gabapentin 5 Active (NEURONTIN) 600 mg 6 tablet methimazole TAKE 1 TABLET 180 tablet 0 Act joy (TAPAZOLE) 10 mg BY MOUTH 6 tablet TWICE DAILY losartan 25 mg 0 Activ e tablet 7 tiZANidine 4 mg TK 1/2 TO 1 T 4 Active tablet PO QD 7 methylphenidate 10 TK 1 T PO 0 A ctive mg tablet BID 7 DULoxetine 20 mg Take 40 mg by 0 Active capsule mouth. propranolol 20 mg Take 1 tablet 180 tablet 1 Active tabletIndications: by mouth 2 0 Tachycardia (two) times daily. levothyroxine 1 tablet on 120 tablet 3 Act joy (SYNTHROID) 75 mcg Tuesday to 0 tabletIndications: Tuesday and 2 Postablative tablets on hypothyroidism Tuesday and tuesday. levothyroxine Take 1 tablet 90 tablet 3 11/13/19 Di scontinued (SYNTHROID) 75 mcg by mouth 0 20 ( Reorder) tabletIndications: every Postablative morning. hypothyroidism documented as of this encounter (statuses as of 11/13/2019) Active Problems Problem Noted Date Postablative hypothyroidism 09/13/2017 Osteoporosis 04/09/2015 Tachycardia 03/13/2014 HTN (hypertension) 03/13/2014 Hyperthyroidism 12/11/2013 documented as of this encounter (statuses as of 11/13/2019) Resolved Problems Problem Noted Date Resolved Date Graves disease 12/11/2013 04/09/2015 documented as of this encounter (statuses as of 11/13/2019) Social History Tobacco Use Types Packs/Day Years [...] Treatment Date Type Specialty Care Team Description 11/20/2019 Appointment Radiology Shahida Bill MD [address] [place], [place] [address] 05/13/2020 Office Visit Endocrinology Diabetes & Ricardo Bill MD Metabolism [facility] [place], [place] [id number] Health Maintenance Due Date Last Done Comments [...] Effective Phone Address T ype Group Dates [facility] MEDICARE [id number] 2018-[employer] Adv HEALTHCARE COMPLETE nt PPO MEDICARE CHOICE ADVANTAGE documented as of this encounter
--- OUTSIDE RECORDS SUMMARY | 2020-01-06 13:02 | XMS REPORT | Continuity of Care Document ---
:1960 Author Organization [facility] t Address [address] [place] [address] Care Team Providers Name Role Phone Fly ROLON Attending Clinician ISAAC Attending Clinician Unavailable ISAAC Admitting Clinician Unavailable Problems Condition Condition Condition Status Onset Resolution Last Treating Co mments Source Name Details Category Date Date Treatment Clinician Date Altered Altered Disease Active [facility] status, status, 00:00: Medical unspecifie unspecifie 00 Ce nter d d TIA TIA Disease Active [facility] (transient (transient 10-29 Shahla kes - ischemic ischemic 00:00: Medica l attack) attack) 00 Center Acute Acute Disease Active [facility] encephalop encephalop - Shahla kes - athy, 2/ athy, 2 00:00: Medi stephen TIA TIA 00 Center Acquired Acquired Disease [facility] hyp[facility]roi hypothyroi 10-29 Shahla kes - dism dism 00:00: Medical 00 [place] Neuropathi Neuropathi Disease Active [facility] pain c pain 10-29 [facility] - 00:00: Medical 00 Center Allergies, Adverse Reactions, Alerts Allergy Allergy Status Severity Reaction(s) Onset Inactive Treating Comm ents Source Name Type Date Date Clinician Psyllium Propensi Active Hives [facility] ty to 10-29 [facility] - adverse 00:00: Medical reaction 00 Center s Family History Family Member Diagnosis Comments Start Date Stop Date Source Natural mother Diabetes [facility] Natural mother Heart disease [facility] Natural mother Stroke [facility] Social History Social Habit Start Date Stop Date Quantity Comments Source Sex Assigned At [facility] Tobacco Comment 2016-10-29 2016-10-29 stopped 2009 [facility] - 00:00:00 00:00:00 [facility] Alcohol Comment 2016-10-29 2016-10-29 very occassional [facility] - 00:00:00 00:00:00 [facility] Smoking Status Start Date Stop Date Source Former smoker 2016-10-29 00:00:00 2016-10-29 00:00:00 [facility] Medications Ordered Filled Start Stop Current Ordering Indication Dosage Frequency Signature Comments Components Source Medication Medication Date Date Medication? Clinician (SIG) Name Name levothyroxi Yes 75ug Take 1.[address] ne 7-15 tablets [facility] - (SYNTHROID, 00:00: (75 mcg Med ical LEVOTHROID) 00 total) by Nancy ter 50 MCG mouth tablet Every morning on an empty stomach. losartan Yes 25mg QD Take [address] [facility] (COZAAR) 25 7-14 by mouth [facility] - MG tablet 05:38: daily. Medica l [address] [place] [address] DULoxetine Yes 20mg QD Take [address] (CYMBALTA) 7-14 by mouth [facility] - 20 MG 05:38: daily. Medical capsule [address] [place] [address] meloxicam Yes rheumatoid 15mg QD Take [address] [address] (MOBIC) 15 7-14 arthritis by mouth [facility] - MG tablet 05:38: daily. Medica l [address] [place] [address] gabapentin Yes 600mg [id number] Take [address] (NEURONTIN) 7-14 [id number] mg by L ukes - 600 MG 05:14: 3D mouth 3 Medical tablet 10 (three) Center times daily. Procedures This patient has no known procedures. Encounters Start End Encounter Admission Attending Care Care Encounter Source Date/Time Date/Time Type Type Clinicians Facility Department ID 2019-09-11 Outpatient [facility] [id number] 13:12:54 2019-11-13 2019-11-13 Telephone [facility] [id number] 00:00:00 00:00:00 Shahida Layne [id number] [place] [id number] Professio [phone] [facility] 220 [facility] 2019-11-10 2019-11-10 Refill [facility] [id number] 00:00:00 00:00:00 Shahida Layne [id number] [place] [id number] Professio [phone] [address] 2019-11-06 2019-11-06 Office [facility] [id number] 14:56:16 15:43:11 Visit Shahida Layne [id number] [place] [id number] Professio [phone] [address] Results Test Description Test Time Test Comments Results Result Comments Source PHOSPHORUS 2016-10-30 04:58:00 Test Item Value Reference Range Interpretation Comme nts PHOSPHORUS (BEAKER) (test code = 604) 3.8 mg/dL 2.3-4.7 FastingLIPID [id number] 04:58:00 Test Item Value Reference Range Interpretation Comments TRIGLYCERIDES (BEAKER) (test code = 87 mg/dL 540) CHOLESTEROL (BEAKER) (test code = 197 mg/dL 631) HDL CHOLESTEROL (BEAKER) (test code 50 mg/dL = 976) LDL CHOLESTEROL CALCULATED (BEAKER) 130 mg/dL (test code = 633) Triglyceride Reference Range: Low Risk <150 Borderline 150-199 High Risk 200-499 Very High Risk >=500Cholesterol Reference Range: Low Risk <200 Borderline 200-239 High Risk >240HDL Cholesterol Reference Range: Low Risk >=60 High Risk <40LDL Cholesterol Reference Range: Optimal <100 Near Optimal 100-129 Borderline 130-159 High 160-189 Very High >=190 FastingT4, [id number] 11:19:00 Test Item Value Reference Range Interpretation Comments FREE T4 (BEAKER) (test code = 655) 0.83 ng/dL 0.70-1.48 CBC W/PLT COUNT & AUTO [id number] 10:53:00 Test Item Value Reference Range Interpretation Comments WHITE BLOOD CELL COUNT (BEAKER) 8.5 K/ L 4.0-10.0 (test code = 775) RED BLOOD CELL COUNT (BEAKER) 3.59 M/ L 4.00-5.00 L (test code = 761) HEMOGLOBIN (BEAKER) (test code = 13.6 GM/DL 12.0-15.0 410) HEMATOCRIT (BEAKER) (test code = 36.9 % 36.0-45.0 411) MEAN CORPUSCULAR VOLUME (BEAKER) 103.0 fL 82.0-99.0 H (test code = 753) MEAN CORPUSCULAR HEMOGLOBIN 38.0 pg 27.0-33.0 H (BEAKER) (test code = 751) MEAN CORPUSCULAR HEMOGLOBIN CONC 36.9 GM/DL 32.0-36.0 H (BEAKER) (test code = 752) RED CELL DISTRIBUTION WIDTH 12.2 % 10.3-14.2 (BEAKER) (test code = 412) PLATELET COUNT (BEAKER) (test 263 K/CU MM 150-430 code = 756) MEAN PLATELET VOLUME (BEAKER) 8.0 fL 6.5-10.5 (test code = 754) NUCLEATED RED BLOOD CELLS 0 /100 WBC 0-0 (BEAKER) (test code = 413) NEUTROPHILS RELATIVE PERCENT 65 % (BEAKER) (test code = 429) LYMPHOCYTES RELATIVE PERCENT 26 % (BEAKER) (test code = 430) MONOCYTES RELATIVE PERCENT 6 % (BEAKER) (test code = 431) EOSINOPHILS RELATIVE PERCENT 2 % (BEAKER) (test code = 432) BASOPHILS RELATIVE PERCENT 1 % (BEAKER) (test code = 437) NEUTROPHILS ABSOLUTE COUNT 5.49 K/ L 1.80-8.00 (BEAKER) (test code = 670) LYMPHOCYTES ABSOLUTE COUNT 2.24 K/ L 1.48-4.50 (BEAKER) (test code = 414) MONOCYTES ABSOLUTE COUNT (BEAKER) 0.55 K/ L 0.00-1.30 (test code = 415) EOSINOPHILS ABSOLUTE COUNT 0.13 K/ L 0.00-0.50 (BEAKER) (test code = 416) BASOPHILS ABSOLUTE COUNT (BEAKER) 0.08 K/ L 0.00-0.20 (test code = 417) 0.00HEMOGLOBIN [id number] 10:52:00 Test Item Value Reference Range Interpretation Comments HEMOGLOBIN A1C (BEAKER) (test code = 5.1 % 4.3-6.1 368) TSH/FREE T4 IF [id number] 10:44:00 Test Item Value Reference Range Interpretation Comments THYROID STIMULATING HORMONE 8.53 uIU/mL 0.35-4.94 H (BEAKER) (test code = 772) VITAMIN [id number] 10:37:00 Test Item Value Reference Range Interpretation Comments VITAMIN B12 (BEAKER) (test code = 992 pg/mL 213-816 H 774) URINALYSIS W/ [id number] 10:31:00 Test Item Value Reference Range Interpretation Comments COLOR (BEAKER) (test code Yellow = 470) CLARITY (BEAKER) (test Clear code = 469) SPECIFIC GRAVITY UA 1.012 1.001-1.035 (BEAKER) (test code = 468) PH UA (BEAKER) (test code 7.5 5.0-8.0 = 467) PROTEIN UA (BEAKER) (test Negative Negative code = 464) GLUCOSE UA (BEAKER) (test Negative Negative code = 365) KETONES UA (BEAKER) (test 20 mg/dL Negative A code = 371) BILIRUBIN UA (BEAKER) Negative Negative (test code = 462) BLOOD UA (BEAKER) (test Negative Negative code = 461) NITRITE UA (BEAKER) (test Negative Negative code = 465) LEUKOCYTE ESTERASE UA Negative Negative (BEAKER) (test code = 466) UROBILINOGEN UA (BEAKER) 0.2 mg/dL 0.2-1.0 (test code = 463) RBC UA (BEAKER) (test code 5 /HPF = 519) WBC UA (BEAKER) (test code < /HPF = 520) MUCUS (BEAKER) (test code Rare = 1574) SQUAMOUS EPITHELIAL < /HPF (BEAKER) (test code = 516) SOURCE(BEAKER) (test code Urine, Clean Catch = 3185) [id number] 10:19:00 Test Item Value Reference Range Interpretation Comments MAGNESIUM (BEAKER) (test code = 2.0 mg/dL 1.6-2.6 627) HEPATIC FUNCTION [id number] 10:19:00 Test Item Value Reference Range Interpretation Comments TOTAL PROTEIN (BEAKER) (test code = 7.0 gm/dL 6.0-8.3 770) ALBUMIN (BEAKER) (test code = 1145) 4.2 g/dL 3.5-5.0 BILIRUBIN TOTAL (BEAKER) (test code 0.9 mg/dL 0.2-1.2 = 377) BILIRUBIN DIRECT (BEAKER) (test 0.3 mg/dL 0.1-0.5 code = 706) ALKALINE PHOSPHATASE (BEAKER) (test 78 U/L 40-150 code = 346) AST (SGOT) (BEAKER) (test code = 18 U/L 5-34 353) ALT (SGPT) (BEAKER) (test code = 18 U/L 6-55 347) BASIC METABOLIC [id number] 10:14:00 Test Item Value Reference Range Interpretation Comments SODIUM (BEAKER) 139 meq/L 136-145 (test code = 381) POTASSIUM (BEAKER) 3.5 meq/L 3.5-5.1 (test code = 379) CHLORIDE (BEAKER) 108 meq/L 98-107 H (test code = 382) CO2 (BEAKER) (test 24 meq/L 22-29 code = 355) BLOOD UREA NITROGEN 10 mg/dL 7-21 (BEAKER) (test code = 354) CREATININE (BEAKER) 0.66 mg/dL 0.57-1.25 (test code = 358) GLUCOSE RANDOM 88 mg/dL 70-105 (BEAKER) (test code = 652) CALCIUM (BEAKER) 8.6 mg/dL 8.4-10.2 (test code = 697) EGFR (BEAKER) (test 93 mL/min/1.73 ESTIMA EDDIE GFR IS code = 1092) sq m NOT ACCURATE CREATININE CLEARANCE IN PREDICTING GLOMERULAR FILTRATION RATE . ESTIMATED GFR I S NOT APPLICABLE FOR DIALYSIS PATIEN TS.
[2020-01-06] MEDS ORDERED: CEFAZOLIN/SWI 1gm 1 GM/10 ML SYR ONE (13:25)
[2020-01-06 13:35] LABS: Absolute Lymphocytes (CBC) 1.4 K/uL (0.7-4.9); Basophils % 1.1 % (0-1.3); Hematocrit 38.8 % (36.0-45.0); Lymphocytes % 25.8 % (15.3-44.8); MPV 9.3 fL (7.6-11.3); RBC Red Blood Cell Count 3.88 M/uL (3.86-4.86)
[2020-01-06 13:40] LABS: Albumin 4.2 g/dL (3.4-5.0); Bilirubin Total 0.6 mg/dL (0.2-1.0); Potassium 3.2 mmol/L (3.5-5.1); Protein, Total 7.5 g/dL (6.4-8.2)
--- NOTE | 2020-01-06 13:47 | RAD REPORT ---
EXAM DESCRIPTION: RAD - Hand Left 3 View - 01/06/2020 1:28 pm CLINICAL HISTORY: PAIN, snake bite near the fourth and fifth digits COMPARISON: None. FINDINGS: No fracture, dislocation or periosteal reaction noted. No foreign body or other soft tissu e abnormality. Degenerative changes are present at the trapezial first metacarpal articulation. IMPRESSION: Negative left hand examination for acute or significant finding. .
[2020-01-06] MEDS ORDERED: POTASSIUM 25 MEQ EFFERV TAB ONE (14:35)
--- NOTE | 2020-01-06 14:48 | ER ---
Nurse's Notes [facility] Name: Jeri Palacio Age: 59 yrs Sex: Female : 1960 Arrival Date: 01/06/2020 Time: 13:00 Bed 4 Private MD: Diagnosis: Bitten by nonvenomous snake Presentation: 01/05 13:00 Chief complaint: EMS states: was bite by snake that was black and yellow about 1215 em while gardening, 2 bites noted to the left pinky/left ring finger. Coronavirus screen: Client denies travel out of the [place] in the last 14 days. Ebola Screen: Patient negative for fever greater than or equal to 101.5 degrees Fahrenheit, and additional compatible Ebola Virus Disease symptoms Patient denies exposure to infectious person. Patient denies travel to an Ebola-affected area in the 21 days before illness onset. No symptoms or risks identified at this time. Initial Sepsis Screen: Does the patient meet any 2 criteria? HR > 90 bpm. No. Patient's initial sepsis screen is negative. Does the patient have a suspected source of infection? Yes: Skin breakdown/wound. Risk Assessment: Do you want to hurt yourself or someone else? Patient reports no desire to harm self or others. Onset of symptoms was January 06, 2020 at 12:15. 13:00 Method Of Arrival: EMS: [facility] em 13:00 Acuity: LEVI 2 em Triage Assessment: 13:04 Bite description: bite sustained to dorsal aspect of proximal phalanx of left ring em finger and dorsal aspect of proximal phalanx of left little finger is from animal, was sustained 30-60 minutes ago. by a snake, animal information: vaccination(s) is not applicable. Historical: - Allergies: 13:04 Mucinex; em - PMHx: 13:04 Hypothyroidism; Hypertension; Rheumatoid Arthritis; em - Immunization history:: Adult Immunizations up to date. - Social history:: Smoking status: Patient denies any tobacco usage or history of. - Family history:: not pertinent. Screenin:05 Abuse screen: Denies threats or abuse. Nutritional screening: No deficits noted. em Tuberculosis screening: No symptoms or risk factors identified. Fall Risk None identified. Assessment: 13:07 General: Appears uncomfortable, Behavior is cooperative, anxious. Pain: Complains of em pain in dorsal aspect of proximal phalanx of left little finger and dorsal aspect of proximal phalanx of left ring finger Pain currently is 5 out of 10 on a pain scale. Neuro: Level of Consciousness is awake, alert, obeys commands, Oriented to person, place, time, situation, Appropriate for age. Cardiovascular: Capillary refill < 3 seconds Patient's skin is warm and dry. Respiratory: Airway is patent Respiratory effort is even, unlabored, Respiratory pattern is regular, symmetrical. GI: Abdomen is flat, Patient currently denies nausea, vomiting. Derm: Skin is intact, is healthy with good turgor, Skin is pink, warm \T\ dry. Musculoskeletal: Range of motion: intact in all extremities. 13:37 Reassessment: Patient appears in no apparent distress at this time. Patient and/or em family updated on plan of care and expected duration. Pain level reassessed. no redness or swelling noted to injury site, will continue to monitor. 14:25 Reassessment: Patient appears in no apparent distress at this time. Patient and/or em family updated on plan of care and expected duration. Pain level reassessed. Patient is alert, oriented x 3, equal unlabored respirations, skin warm/dry/pink. no redness or swelling noted to injury site, will continue to monitor. 15:23 Reassessment: Patient appears in no apparent distress at this time. Patient and/or em family updated on plan of care and expected duration. Pain level reassessed. Patient is alert, oriented x 3, equal unlabored respirations, skin warm/dry/pink. Patient states feeling better. Vital Signs: 13:00 BP 138 / 84; Pulse 115; Resp 20; Temp 98.3; Pulse Ox 98% on R/A; Weight 61.23 kg; em Height 5 ft. 4 in. (162.56 cm); Pain 5/10; 14:12 BP 123 / 89; Pulse 100; Resp 20; Pulse Ox 98% on R/A; mh5 13:00 Body Mass Index 23.17 (61.23 kg, 162.56 cm) em ED Course: 13:00 Patient arrived in ED. em 13:00 Maintain EMS IV. Dressing intact. Good blood return noted. Site clean \T\ dry. Gauge \T\ em site: 18 RAC. 13:03 Triage completed. em 13:04 Arm band placed on. em 13:05 Andrade Dawn, RN is Primary Nurse. em 13:06 Aime Juarez MD is Attending Physician. [facility] 13:08 Patient has correct armband on for positive identification. Placed in gown. Bed in low em position. Call light in reach. Pulse ox on. NIBP on. 13:28 Hand Left 3 View XRAY In Process Unspecified. EDMS 14:13 Warm blanket given. Pillow given. phototypesetting equipment monitor on. mh5 14:47 Andre Cuellar MD is Referral Physician. [facility] 15:18 No provider procedures requiring assistance completed. IV discontinued, intact, em bleeding controlled, No redness/swelling at site. Pressure dressing applied. Administered Medications: 13:11 Not Given (Physician Discretion): Tetanus-Diphtheria Toxoid Adult 0.5 ml IM once iw 13:37 Drug: Ancef 1 grams Route: IVPB; Site: right antecubital; em 14:00 Follow up: Response: No adverse reaction; IV Status: Completed infusion; IV Intake: 10mlem 14:25 Drug: Potassium Effervescent Tablet 25 mEq Route: PO; iw 15:21 Follow up: Response: No adverse reaction em Intake: 14:00 IV: 10ml; Total: 10ml. em Outcome: 14:48 Discharge ordered by . [facility] 15:19 Discharged to home ambulatory, with friend. em 15:19 Condition: good 15:19 Discharge instructions given to patient, Instructed on discharge instructions, follow up and referral plans. medication usage, wound care, Demonstrated understanding of instructions, follow-up care, medications, wound care, Prescriptions given X 1. 15:24 Patient left the ED. em Signatures: Dispatcher [employer] Aime Jones MD MD cha Munoz, Edgar, RN RN Chantel Mckeon RN RUTH Polo [place] [id number]
--- NOTE | 2020-01-06 14:48 | EDPHYS ---
Physician Documentation [facility] Name: Jeri Palacio Age: 59 yrs Sex: Female : 1960 Arrival Date: 01/06/2020 Time: 13:00 Bed 4 Private MD: ED Physician Aime Juarez HPI: 01/05 13:10 This 59 yrs old Female presents to ER via EMS with complaints of Snake bite. leon 13:10 The patient was bitten on the left hand. Onset: The symptoms/episode began/occurred leon just prior to arrival. Secondary to the bite the patient reports an abrasion, pain. Associated signs and symptoms: The patient has no apparent associated signs or symptoms. Severity of symptoms: At their worst the symptoms were mild, in the emergency department the symptoms are unchanged. The patient has not experienced similar symptoms in the past. Historical: - Allergies: 13:04 Mucinex; em - PMHx: 13:04 Hypothyroidism; Hypertension; Rheumatoid Arthritis; em - Immunization history:: Adult Immunizations up to date. - Social history:: Smoking status: Patient denies any tobacco usage or history of. - Family history:: not pertinent. ROS: 13:10 Constitutional: Negative for fever, chills, and weight loss, Eyes: Negative for injury, leon pain, redness, and discharge, ENT: Negative for injury, pain, and discharge, Neck: Negative for injury, pain, and swelling, Cardiovascular: Negative for chest pain, palpitations, and edema, Respiratory: Negative for shortness of breath, cough, wheezing, and pleuritic chest pain, Abdomen/GI: Negative for abdominal pain, nausea, vomiting, diarrhea, and constipation, Back: Negative for injury and pain, : Negative for injury, bleeding, discharge, and swelling, Skin: Negative for injury, rash, and discoloration, Neuro: Negative for headache, weakness, numbness, tingling, and seizure, Psych: Negative for depression, anxiety, suicide ideation, homicidal ideation, and hallucinations, Allergy/Immunology: Negative for hives, rash, and allergies, Endocrine: Negative for neck swelling, polydipsia, polyuria, polyphagia, and marked weight changes, Hematologic/Lymphatic: Negative for swollen nodes, abnormal bleeding, and unusual bruising. 13:10 MS/extremity: Positive for decreased range of motion, pain, swelling, tenderness. Exam: 13:10 Constitutional: This is a well developed, well nourished patient who is awake, alert, leon and in no acute distress. Head/Face: Normocephalic, atraumatic. Eyes: Pupils equal round and reactive to light, extra-ocular motions intact. Lids and lashes normal. Conjunctiva and sclera are non-icteric and not injected. Cornea within normal limits. Periorbital areas with no swelling, redness, or edema. ENT: Nares patent. No nasal discharge, no septal abnormalities noted. Tympanic membranes are normal and external auditory canals are clear. Oropharynx with no redness, swelling, or masses, exudates, or evidence of obstruction, uvula midline. Mucous membranes moist. Neck: Trachea midline, no thyromegaly or masses palpated, and no cervical lymphadenopathy. Supple, full range of motion without nuchal rigidity, or vertebral point tenderness. No Meningismus. Chest/axilla: Normal chest wall appearance and motion. Nontender with no deformity. No lesions are appreciated. Cardiovascular: Regular rate and rhythm with a normal S1 and S2. No gallops, murmurs, or rubs. Normal PMI, no JVD. No pulse deficits. Respiratory: Lungs have equal breath sounds bilaterally, clear to auscultation and percussion. No rales, rhonchi or wheezes noted. No increased work of breathing, no retractions or nasal flaring. Abdomen/GI: Soft, non-tender, with normal bowel sounds. No distension or tympany. No guarding or rebound. No evidence of tenderness throughout. Back: No spinal tenderness. No costovertebral tenderness. Full range of motion. Female : Normal external genitalia. Skin: Warm, dry with normal turgor. Normal color with no rashes, no lesions, and no evidence of cellulitis. Neuro: Awake and alert, GCS 15, oriented to person, place, time, and situation. Cranial nerves II-XII grossly intact. Motor strength 5/5 in all extremities. Sensory grossly intact. Cerebellar exam normal. Normal gait. Psych: Awake, alert, with orientation to person, place and time. Behavior, mood, and affect are within normal limits. 13:10 Musculoskeletal/extremity: ROM: full active range of motion, full passive range of motion, Circulation is intact in all extremities. Sensation intact. Compartment Syndrome exam of affected extremity: is normal. no palor, no weak pulses, numbness, DVT Exam: no swelling, negative Homans' sign noted on exam, no appreciated bluish discoloration, no erythema, no increased warmth, pain, tenderness. Vital Signs: 13:00 BP 138 / 84; Pulse 115; Resp 20; Temp 98.3; Pulse Ox 98% on R/A; Weight 61.23 kg; em Height 5 ft. 4 in. (162.56 cm); Pain 5/10; 14:12 BP 123 / 89; Pulse 100; Resp 20; Pulse Ox 98% on R/A; mh5 13:00 Body Mass Index 23.17 (61.23 kg, 162.56 cm) em MDM: 13:06 Patient medically screened. [facility] 13:13 Differential diagnosis: superficial laceration, cellulitis. Data reviewed: vital signs, [facility] nurses notes, lab test result(s), radiologic studies. Data interpreted: monitoring analyst: rate is 115 beats/min, rhythm is regular, Pulse oximetry: on room air. Test interpretation: by ED physician or midlevel provider: plain radiologic studies. Counseling: I had a detailed discussion with the patient and/or guardian regarding: the historical points, exam findings, and any diagnostic results supporting the discharge/admit diagnosis, lab results, radiology results, the need for outpatient follow up, for definitive care, a general surgeon. 01/05 13:10 Order name: CBC with Diff; Complete Time: 14:21 [facility] 01/05 13:10 Order name: Comprehensive Metabolic Panel; Complete Time: 14:21 [facility] 01/05 13:10 Order name: Hand Left 3 View XRAY; Complete Time: 14:21 [facility] 01/05 13:10 Order name: Fibrinogen; Complete Time: 14:21 [facility] Administered Medications: 13:11 Not Given (Physician Discretion): Tetanus-Diphtheria Toxoid Adult 0.5 ml IM once iw 13:37 Drug: Ancef 1 grams Route: IVPB; Site: right antecubital; em 14:00 Follow up: Response: No adverse reaction; IV Status: Completed infusion; IV Intake: 10mlem 14:25 Drug: Potassium Effervescent Tablet 25 mEq Route: PO; iw 15:21 Follow up: Response: No adverse reaction em Disposition: 01/06/20 14:48 Discharged to Home. Impression: Bitten by nonvenomous snake. - Condition is Stable. - Discharge Instructions: Snake Bite. - Prescriptions for Keflex 500 mg Oral Capsule - take 1 capsule by ORAL route every 6 hours for 7 days; 28 capsule. - Medication Reconciliation Form, Thank You Letter, Antibiotic Education, Prescription Opioid Use form. - Follow up: Private Physician; When: 2 - 3 days; Reason: Recheck today's complaints, Continuance of care, Re-evaluation by your physician. Follow up: Andre Cuellar MD; When: 1 - 2 days; Reason: Recheck today's complaints, Re-evaluation by your physician. - Problem is new. - Symptoms have improved. Signatures: Dispatcher [employer] EDAime Watt MD MD cha Munoz, Edgar RN RN Chantel Mckeon RN RN iw Corrections: (The following items were deleted from the chart) 15:24 14:48 01/06/2020 14:48 Discharged to Home. Impression: Bitten by nonvenomous snake. em Condition is Stable. Forms are Medication Reconciliation Form, Thank You Letter, Antibiotic Education, Prescription Opioid Use. Follow up: Private Physician; When: 2 - 3 days; Reason: Recheck today's complaints, Continuance of care, Re-evaluation by your physician. Follow up: Andre Cuellar; When: 1 - 2 days; Reason: Recheck today's complaints, Re-evaluation by your physician. Problem is new. Symptoms have improved. leon
[2020-01-06 15:28] VITALS: TEMP 98.3; O2SAT 98
[2020-01-06 15:29] VITALS: BP 123/89
== END 2020-01-06 15:24 | disposition home or self-care (01) ==
LOC: ER 12:59
DX: S60.475A Other superficial bite of left ring finger, initial encounter (principal); W59.11XA Bitten by nonvenomous snake, initial encounter; Y93.H2 Activity, gardening and landscaping; Y92.9 Unspecified place or not applicable; I10 Essential (primary) hypertension; Z88.8 Allergy status to other drugs, medicaments and biological substances; Z23 Encounter for immunization
CPT/HCPCS: 96365; 85025; 36415; 85384; 80053; 73130; 99284; J0690

== ENCOUNTER 2021-04-29 12:40 | Emergency (ER) | payer OTHER ==
--- OUTSIDE RECORDS SUMMARY | 2021-04-29 12:42 | XMS REPORT | Continuity of Care Document ---
:1960 Author Organization [facility] t Address [address] [place] [address] Care Team Providers Name Role Phone Naomi Cruz Primary Care Physician ANA FAN Attending Clinician Unavailable Fly ROLON Attending Clinician ISAAC Attending Clinician Unavailable ISAAC Admitting Clinician Unavailable Payers Payer Name Policy Type Policy Number Effective Date Expiration Date S ource Problems Condition Condition Condition Status Onset Resolution Last Treating Co mments Source Name Details Category Date Date Treatment Clinician Date Postablati Postablati Disease Active U nivers ve ve 5-29 ity [place] [facility] Osteoporos Osteoporos Disease Active 2014-04 U nivers is is 2-23 ity of 00:00: [place] [facility] Tachycardi Tachycardi Disease Active 2013-04 U nivers a a 1-26 ity of 00:00: [place] [facility] HTN HTN Disease Active 2013-04 Univers (hypertens (hypertens 1-26 it y of ion) ion) 00:00: [place] [facility] Hyperthyro Hyperthyro Disease Active U nivers idism idism 8-26 ity of 00:00: [place] [facility] Allergies, Adverse Reactions, Alerts Allergy Allergy Status Severity Reaction(s) Onset Inactive Treating Comm ents Source Name Type Date Date Clinician Morphine Propensi Active Hallucinatio Univers ty to ns 7-29 ity of adverse 00:00: [place] [facility] Tahirafenjacki Crandalli Active Itching Unive rs sin ty to 12-11 ity of adverse 00:00: [place] [facility] PSYLLIUM Allergy Active [facility] Social History Social Habit Start Date Stop Date Quantity Comments Source Alcohol intake 2020-05-13 2020-05-13 Current University of 00:00:00 00:00:00 non-drinker of [facility] alcohol Branch (finding) Sex Ass[birth year] At [birth year] Universit y of 00:00:00 00:00:00 [facility] Smoking Status Start Date Stop Date Source Never smoker [facility] Medications Ordered Filled Start Stop Current Ordering Indication Dosage Frequency Signature Comments Components Source Medication Medication Date Date Medication? Clinician (SIG) Name Name levothyroxi 2020-04 Yes [id number] TAKE 1 Univers ne 75 mcg 2-27 TABLET BY ity o f tablet 00:00: MOUTH ON Tuesday- Tuesday Branch AND 2 TABLETS BY MOUTH ON TUESDAY levothyroxi 2020- No [id number] TAKE 1 Univers ne 75 mcg 9-16 12-27 TABLET BY ity of tablet 00:00: 00:00 MOUTH ON 00 :Tuesday- Tuesday Branch AND 2 TABLETS BY MOUTH ON TUESDAY propranolol Yes [id number] 20mg Take 1 U nivers 20 mg 7-21 tablet by ity of tablet 00:00: mouth 2 [place] (two) Medical times Branch daily. DULoxetine Yes 40mg Take 40 mg U nivers 20 mg 3-25 by mouth. ity of capsule 12:12: [address] Branch losartan 25 Yes Univer s mg tablet 4-19 ity of 00:00: [place] [facility] methylpheni Yes TK 1 T PO U nivers date 10 mg 3-09 BID ity of tablet 00:00: [place] [facility] tiZANidine Yes TK 1/2 TO Un ashutosh 4 mg tablet 3-06 1 T PO QD ity of 00:00: [place] 00 Medical [facility] gabapentin Yes Univers (NEURONTIN) 3-24 ity of 600 mg 00:00: [place] tablet 00 Medical Branch meloxicam 2014-0 Yes Univers (MOBIC) 7.5 8-05 ity of mg tablet 00:00: [address] Immunizations Ordered Filled Immunization Date Status Comments Sour e Immunization Name Name Influenza Virus 2020-04-07 Completed Universit y of Vaccine 00:00:00 [facility] TDAP 2020-01-11 Completed University 00:00:00 [facility] Procedures This patient has no known procedures. Encounters Start End Encounter Admission Attending Care Care Encounter Source Date/Time Date/Time Type Type Clinicians Facility Department ID 2019-09-11 Outpatient PERI FAN URO [id number] M HBL 13:12:54 [facility] 2021-04-08 2021-04-08 Refill Bill, [facility] [id number] Univers 00:00:00 00:00:00 [place] [id number] i ty [id number] [id number] Me dical [address] 2019-11-13 2019-11-13 Telephone Bill, [facility] [id number] 00:00:00 00:00:00 [place] [id number] [place] [id number] Professio [phone] [address] 2019-11-10 2019-11-10 Refill Bill, [facility] [id number] 00:00:00 00:00:00 [place] [id number] [place] [id number] Professio [phone] [address] 2019-11-06 2019-11-06 Office Bill, [facility] [id number] 14:56:16 15:43:11 Visit Josewilla [place] [id number] [place] [id number] Professio [phone] [address] Results Test Description Test Time Test Comments Results Result Comments Source PHOSPHORUS 2016-10-30 04:58:00 Test Item Value Reference Range Interpretation Comme nts PHOSPHORUS (BEAKER) (test code = 604) 3.8 mg/dL 2.3-4.7 FastingLIPID [id number] 04:58:00 Test Item Value Reference Range Interpretation [...] 130-159 High 160-189 Very High >=190 FastingT4, [id number] 11:19:00 Test Item Value Reference Range Interpretation Comments FREE T4 (BEAKER) (test code = 655) 0.83 ng/dL 0.70-1.48 CBC W/PLT COUNT & AUTO [id number] 10:53:00 Test Item Value Reference Range Interpretation [...] L 0.00-0.20 (test code = 417) 0.00HEMOGLOBIN [id number] 10:52:00 Test Item Value Reference Range Interpretation Comments HEMOGLOBIN A1C (BEAKER) (test code = 5.1 % 4.3-6.1 368) TSH/FREE T4 IF [id number] 10:44:00 Test Item Value Reference Range Interpretation Comments THYROID STIMULATING HORMONE 8.53 uIU/mL 0.35-4.94 H (BEAKER) (test code = 772) VITAMIN [id number] 10:37:00 Test Item Value Reference Range Interpretation Comments VITAMIN B12 (BEAKER) (test code = 992 pg/mL 213-816 H 774) URINALYSIS W/ [id number] 10:31:00 Test Item Value Reference Range Interpretation [...] SOURCE(BEAKER) (test code Urine, Clean Catch = 2795) [id number] 10:19:00 Test Item Value Reference Range Interpretation Comments MAGNESIUM (BEAKER) (test code = 2.0 mg/dL 1.6-2.6 627) HEPATIC FUNCTION [id number] 10:19:00 Test Item Value Reference Range Interpretation [...] = 18 U/L 6-55 347) BASIC METABOLIC [id number] 10:14:00 Test Item Value Reference Range Interpretation [...]
--- NOTE | 2021-04-29 16:18 | ER ---
Nurse's Notes [facility] Name: Jeri Palacio Age: 61 yrs Sex: Female : 1960 Arrival Date: 04/29/2021 Time: 12:51 Bed Waiting Private MD: Diagnosis: Presentation: 04/29 12:51 Chief complaint: EMS states: EMS toned out for multiple complaints by patient; feeling jl7 of cold all over her body, and nausea. Pt endorses COVID testing last week that was negative. Pt is AA0X4, ambulatory without assistance, and well appearing (smiling at this time). Pt has hx of anxiety, which is what EMS believes is currently going on with pt at this time. Coronavirus screen: Vaccine status: Patient reports receiving the 2nd dose of the covid vaccine. Client denies travel out of the [place] in the last 14 days. At this time, the client does not indicate any symptoms associated with coronavirus-19. Ebola Screen: Patient negative for fever greater than or equal to 101.5 degrees Fahrenheit, and additional compatible Ebola Virus Disease symptoms Patient denies exposure to infectious person. Patient denies travel to an Ebola-affected area in the 21 days before illness onset. Initial Sepsis Screen: Does the patient meet any 2 criteria? HR > 90 bpm. No. Patient's initial sepsis screen is negative. Does the patient have a suspected source of infection? No. Patient's initial sepsis screen is negative. Risk Assessment: Do you want to hurt yourself or someone else? Patient reports no desire to harm self or others. Onset of symptoms was April 29, 2021. 12:51 Method Of Arrival: EMS: [facility] 12:51 Acuity: LEVI 3 jl7 Triage Assessment: 13:08 General: Appears in no apparent distress. uncomfortable, Behavior is calm, cooperative, jl7 appropriate for age. Pain: Denies pain. Neuro: Level of Consciousness is awake, alert, obeys commands, Oriented to person, place, time, situation. Cardiovascular: Patient's skin is warm and dry. Respiratory: Airway is patent Respiratory effort is even, unlabored, Respiratory pattern is regular, symmetrical. Derm: Skin is pink, warm \T\ dry. Historical: - Allergies: 13:08 Mucinex; jl7 12:55 Mucinex; jl7 - Home Meds: 12:55 BP med [Active]; Cymbalta Oral [Active]; jl7 - PMHx: 13:08 Hypertension; Hypothyroidism; Rheumatoid Arthritis; jl7 - Immunization history:: Client reports receiving the 2nd dose of the Covid vaccine, Pfizer. - Social history:: Smoking status: Patient denies any tobacco usage or history of. Vital Signs: 12:51 BP 144 / 82; Pulse 96; Resp 18; Temp 98.4; Pulse Ox 98% on R/A; Weight 72.57 kg; Height 7 5 ft. 4 in. (162.56 cm); 12:51 Body Mass Index 27.46 (72.57 kg, 162.56 cm) 7 ED Course: 12:51 Patient arrived in ED. 12:55 Triage completed. 7 13:08 Arm band placed on right wrist. 7 15:00 Patient's name was called from ER lobby. No response. Unable to locate patient. Will [facility] disposition as left without being seen by a provider. Administered Medications: No medications were administered Outcome: 16:18 Patient left the ED. ss Signatures: Lizabeth Monteiro RN RN Topher Davis RN RN jl7 Steffany Tang, RUTH RN jh5 Corrections: (The following items were deleted from the chart) 13:16 12:55 PMHx: Hypothyroidism; 7 13:16 12:55 PMHx: Hypertension; 7 jl7 13:16 12:55 PMHx: Rheumatoid Arthritis; 7 7
[2021-04-29 16:22] VITALS: BP 144/82; TEMP 98.4; O2SAT 98
== END 2021-04-29 16:18 | disposition left against medical advice (07) ==
LOC: ER 12:40
DX: Z53.21 Procedure and treatment not carried out due to patient leaving prior to being seen by health care provider (principal)
CPT/HCPCS: 99282

== ENCOUNTER → 2023-04-07 | Emergency (ER) | payer OTHER ==
[~2023-04-07] MED LIST: ALBUTEROL 2.5 MG/3 ML NEB SOL ONE; IPRATROPIUM BROM 0.5MG/2.5ML ONE; NA CHLORIDE 0.9% 1,000 ML ONE; predniSONE 20 MG TAB ONE
[2023-04-07 11:37] LABS: Absolute Lymphocytes (CBC) 2.1 K/uL (0.7-4.9); Lymphocytes % 18.4 % (15.3-44.8); MCV 101.6 fL (80-100); MPV 7.9 fL (7.6-11.3); Platelets 369 thou/uL (152-406); RBC Red Blood Cell Count 3.93 M/uL (3.86-4.86)
--- NOTE | 2023-04-07 11:50 | RAD REPORT ---
EXAM DESCRIPTION: Elsa Single View04/07/2023 11:37 am CLINICAL HISTORY: Cough COMPARISON: 2020 FINDINGS: The lungs appear clear of acute infiltrate. The heart is normal size IMPRESSION: No acute abnormalities displayed
[2023-04-07 11:56] LABS: Albumin 3.8 g/dL (3.4-5.0); Bilirubin Total 0.7 mg/dL (0.2-1.0); Potassium 3.5 mEq/L (3.5-5.1); Protein, Total 7.8 g/dL (6.4-8.2); Troponin High Sensitivity 4.4 pg/mL (<58.9)
--- NOTE | 2023-04-07 12:29 | EDPHYS ---
Physician Documentation [facility] Name: Jeri Palacio Age: 63 yrs Sex: Female : 1960 Arrival Date: 04/07/2023 Time: 10:05 Bed 12 Private MD: Rajan Cruz B ED Physician Juliano Maria HPI: 04/07 11:08 This 63 yrs old Female presents to ER via Ambulatory with complaints of Low ec2 O2. 11:08 Patient arrives today for evaluation of cough and cold symptoms. Patient reports that ec2 she has been experiencing cough and cold symptoms ongoing for approximately 3 days. Patient reports that she has some persistent chest congestion, productive cough. Was seen at the primary care doctor's office, they had issues obtaining a pulse ox and subsequently sent her here for evaluation. Patient also with complaints of diarrheal symptoms.. Historical: - Allergies: 11:03 Mucinex; ll1 - PMHx: 11:03 Hypothyroidism; TIA; electrocuted-chronic pain; Hypertensive disorder; ll1 - Immunization history:: Adult Immunizations up to date. - Social history:: Smoking status: Patient denies any tobacco usage or history of. ROS: 11:11 Constitutional: as per hpi ec2 Exam: 11:11 Constitutional: GEN: NAD Head: atraumatic Eyes: EOMI Ears: External ears are ec2 normal. CV: regular rate LUNGS: no respiratory distress, no wheezes, no rales, rhonchi ABD: non-distended SKIN: no evidence of rashes MSK: no evidence of trauma NEURO: moves all extremities equally Vital Signs: 11:04 BP 134 / 99; Pulse 93; Resp 18; Temp 98.5; Pulse Ox 96% on R/A; ll1 12:41 BP 147 / 81; Pulse 84; Resp 20; Pulse Ox 97% on R/A; iw MDM: 11:09 Patient medically screened. ec2 11:11 Data reviewed: vital signs. ED course: Patient arrives today for URI signs and ec2 symptoms. Examination remarkable for well-appearing nontoxic in which was otherwise in no acute respiratory distress. Will obtain lab work, EKG, chest x-ray and further assess patient's complaint. Currently considering processes such as URI, pneumonia, low suspicion for CHF or pleural effusion.. 12:12 ED course: EKG independently reviewed and interpreted by me, shows normal sinus rhythm, ec2 rate of 74, no acute ST segment elevations, nonconcerning intervals. . 12:24 ED course: Lab work remarkable for slight leukocytosis at 11.4, metabolic profile is ec2 reassuring. Troponin within normal ranges. BNP within normal ranges, chest x-ray without evidence of pneumonia. COVID test negative, flu testing negative. . 12:30 ED course: On reassessment patient is well-appearing and in no acute distress. Will ec2 discharge home, have her follow-up with her primary care doctor.. 04/07 11:08 Order name: CBC with Diff; Complete Time: 12:24 ec2 04/07 11:08 Order name: NT PRO-BNP; Complete Time: 12:24 ec2 04/07 11:08 Order name: Troponin HS; Complete Time: 12:24 ec2 04/07 11:08 Order name: CMP; Complete Time: 12:24 ec2 04/07 11:08 Order name: COVID-19 SARS RT PCR; Complete Time: 12:24 ec2 04/07 11:08 Order name: Influenza Screen (a \T\ B); Complete Time: 12:24 ec2 04/07 11:08 Order name: XRAY Chest (1 view); Complete Time: 12:24 ec2 04/07 11:08 Order name: EKG; Complete Time: 11:09 ec2 04/07 11:08 Order name: EKG - Nurse/Tech; Complete Time: 12:07 ec2 04/07 11:08 Order name: IV Saline Lock; Complete Time: 11:32 ec2 04/07 11:08 Order name: Labs collected and sent; Complete Time: 11:32 ec2 04/07 11:08 Order name: O2 Per Protocol; Complete Time: 11:33 ec2 04/07 11:08 Order name: O2 Sat Monitoring; Complete Time: 11:33 ec2 Administered Medications: 11:46 Drug: DuoNeb Nebulize (3:1) (2.5 mg - 0.5 mg) 3 ml Nebulizer once Route: Nebulizer; ap3 12:43 Follow up: Response: No adverse reaction iw 11:46 Drug: predniSONE PO 40 mg PO once Route: PO; ap3 12:43 Follow up: Response: No adverse reaction iw 11:46 Drug: NS 0.9% IV 1000 ml IV at 1 bolus Per protocol; 1000 mL bolus Route: IV; Rate: 1 ap3 bolus; Site: left antecubital; 12:42 Follow up: IV Status: Completed infusion iw Disposition Summary: 04/07/23 12:29 Discharge Ordered Notes: Location: Home ec2 Condition: Stable ec2 Diagnosis - Viral infection, unspecified ec2 Followup: ec2 - With: Private Physician - When: - Reason: Recheck today's complaints Discharge Instructions: - Discharge Summary Sheet ec2 - Viral Illness, Adult ec2 Forms: - Medication Reconciliation Form ec2 - Thank You Letter ec2 - Antibiotic Education ec2 - Prescription Opioid Use ec2 - Patient Portal Instructions ec2 - Leadership Thank You Letter ec2 Prescriptions: - albuterol sulfate 90 mcg/actuation Inhalation HFA Aerosol Inhaler - inhale 2 inhalation INHALATION route every 4 hours administer via ventilator; ec2 90 microgram; Refills: 0, Product Selection Permitted - Prednisone 20 mg Oral Tablet - take 2 tablets ORAL route once daily for 5 days; 10 tablet; Refills: 0, Product ec2 Selection Permitted Signatures: Dispatcher [employer] Irma Hensley RN RN ap3 Maxime Bruce RN RN ll1 Juliano Maria MD MD ec2 Chantel Chavez RN iw
--- NOTE | 2023-04-07 12:29 | ER ---
Nurse's Notes [facility] Name: Jeri Palacio Age: 63 yrs Sex: Female : 1960 Arrival Date: 04/07/2023 Time: 10:05 Bed 12 Private MD: Rajan Cruz B Diagnosis: Viral infection, unspecified Presentation: 04/07 11:04 Chief complaint: Patient states: Sent by Dr. Cruz for low O2 sat. Best O2 sat. 81%. ll1 Cough, congestion since Tuesday. Dizzy, body hurts, lightheaded. Coronavirus screen: Client denies travel out of the [place] in the last 14 days. congestion, cough unrelated to allergies, difficulty breathing, fatigue, Client presents with at least one sign or symptom that may indicate coronavirus-19. Standard/surgical mask placed on the client. Ebola Screen: Patient denies travel to an Ebola-affected area in the 21 days before illness onset. Initial Sepsis Screen: Does the patient meet any 2 criteria? No. Patient's initial sepsis screen is negative. Does the patient have a suspected source of infection? Yes: Productive cough/pneumonia. Risk Assessment: Do you want to hurt yourself or someone else? Patient reports no desire to harm self or others. Onset of symptoms was April 05, 2023. 11:04 Method Of Arrival: Ambulatory ll1 11:04 Acuity: LEVI 3 ll1 Triage Assessment: 11:06 General: Appears in no apparent distress. Behavior is calm, cooperative, appropriate ll1 for age. General: Reports feeling ill for fatigue for. Neuro: No deficits noted. Neuro: Reports dizziness. Respiratory: Reports shortness of breath cough that is. 12:32 Pain: Denies pain. iw Historical: - Allergies: 11:03 Mucinex; ll1 - PMHx: 11:03 Hypothyroidism; TIA; electrocuted-chronic pain; Hypertensive disorder; ll1 - Immunization history:: Adult Immunizations up to date. - Social history:: Smoking status: Patient denies any tobacco usage or history of. Screenin:30 [facility] ED Fall Risk Assessment (Adult) History of falling in the last 3 months, iw including since admission No falls in past 3 months (0 pts) Confusion or Disorientation No (0 pts) Intoxicated or Sedated No (0 pts) Impaired Gait No (0 pts) Mobility Assist Device Used No (0 pt) Altered Elimination No (0 pt) Score/Fall Risk Level 0 - 2 = Low Risk Maintained a safe environment, Provided non-skid footwear, Hourly rounding (assess needs \T\ fall precautionary measures) done. Abuse screen: Denies threats or abuse. Nutritional screening: No deficits noted. Tuberculosis screening: No symptoms or risk factors identified. Assessment: 12:30 Reassessment: No changes from previously documented assessment. Patient and/or family iw updated on plan of care and expected duration. Pain level reassessed. Vital Signs: 11:04 BP 134 / 99; Pulse 93; Resp 18; Temp 98.5; Pulse Ox 96% on R/A; ll1 12:41 BP 147 / 81; Pulse 84; Resp 20; Pulse Ox 97% on R/A; iw ED Course: 10:07 Patient arrived in ED. mr 10:07 Rajan Cruz MD is Private Physician. mr 10:28 Juliano Maria MD is Attending Physician. ec2 11:06 Triage completed. ll1 11:06 Arm band placed on. ll1 11:32 Inserted saline lock: 22 gauge in right antecubital area, using aseptic technique. ds4 Blood collected. 11:38 XRAY Chest (1 view) In Process Unspecified. EDMS 12:30 Chantel Chavez, RN is Primary Nurse. iw 12:30 Patient has correct armband on for positive identification. Bed in low position. Call iw light in reach. Side rails up X 1. Provided Education on: POC. Verbalized understanding. . 12:30 No provider procedures requiring assistance completed. iw 12:42 IV discontinued, intact, bleeding controlled, No redness/swelling at site. Pressure iw dressing applied. Administered Medications: 11:46 Drug: DuoNeb Nebulize (3:1) (2.5 mg - 0.5 mg) 3 ml Nebulizer once Route: Nebulizer; ap3 12:43 Follow up: Response: No adverse reaction iw 11:46 Drug: predniSONE PO 40 mg PO once Route: PO; ap3 12:43 Follow up: Response: No adverse reaction iw 11:46 Drug: NS 0.9% IV 1000 ml IV at 1 bolus Per protocol; 1000 mL bolus Route: IV; Rate: 1 ap3 bolus; Site: left antecubital; 12:42 Follow up: IV Status: Completed infusion iw Medication: 12:32 VIS not applicable for this client. iw Outcome: 12:29 Discharge ordered by . ec2 12:42 Discharged to home ambulatory, with friend, iw 12:42 Condition: stable 12:42 Discharge instructions given to patient, friend, Instructed on discharge instructions, follow up and referral plans. medication usage, Demonstrated understanding of instructions, follow-up care, medications, Prescriptions given X 2, 12:42 Patient left the ED. iw Signatures: Dispatcher [employer] EDNJ Karie Hernandez, Reg Reg mr Chantel Chavez, RN RN iw José Miguel Bello ds4 Irma Rice RN RN ap3 Maxime Bruce RN RN ll1 Juliano Maria MD MD ec2
[2023-04-07 13:38] VITALS: BP 147/81; TEMP 98.5; O2SAT 97
--- NOTE | 2023-04-08 15:08 | EKG ---
Test Date: 2023-04-07 Test Time: 12:04:34 [employer] Developer: ALP MEASUREMENT RESULTS: Intervals: Rate: 74 GA: 140 QRSD: 78 QT: 380 QTc: 421 [place]: P: 55 GA: 140 QRS: 83 T: 40 INTERPRETIVE STATEMENTS: Normal sinus rhythm Normal ECG Compared to ECG 05/13/2017 09:56:17 No significant changes Electronically Signed On 04-08-23 15:07:34 RIP TAILER by Chu Fernandez
== END ==
LOC: ER 10:05
DX: B34.9 Viral infection, unspecified (principal); I10 Essential (primary) hypertension; Z11.52 Encounter for screening for COVID-19; Z88.8 Allergy status to other drugs, medicaments and biological substances; Z86.73 Personal history of transient ischemic attack (TIA), and cerebral infarction without residual deficits
CPT/HCPCS: 93005; 85025; 36415; 84484; 80053; 83880; 87635; 87804 ×2; 71045; 94640; 96360; 99285; J7512; J7613; J7644; J7030